=== PATIENT | female | born 1985 | race Native Hawaiian/Other Pacific Islander ===

== ENCOUNTER 2025-01-02 08:08 | Outpatient (CLI) | payer BC, SELFPAY | END 2025-01-02 08:09 | disposition home or self-care (01) | LOC: NFLDREF 01-04 06:38 | PROVIDERS: Visit Provider Physician Assistant Medical | DX: Z13.228 Encounter for screening for other metabolic disorders (principal); Z13.220 Encounter for screening for lipoid disorders; Z13.29 Encounter for screening for other suspected endocrine disorder | CPT/HCPCS: 80053; 80061; 84443 ==

== ENCOUNTER 2025-01-04 10:38 | Outpatient (CLI) | payer BC, SELFPAY | END 2025-01-04 10:39 | disposition home or self-care (01) | LOC: NFLDREF 01-09 09:26 | PROVIDERS: Visit Provider Physician Assistant Medical | DX: D50.9 Iron deficiency anemia, unspecified (principal); N92.0 Excessive and frequent menstruation with regular cycle; R53.83 Other fatigue | CPT/HCPCS: 82306; 82607; 82728 ==

== ENCOUNTER 2025-03-08 14:30 | Outpatient (CLI) | payer BC, SELFPAY ==
--- NOTE | 2025-03-08 14:45 | CRLHL7_ITS ---
For Patients: As a result of the Century Cures Act, medical imaging exams and procedure reports are released immediately into your electronic medical record. You may view this report before your referring provider. If you have questions, please contact your health care provider. INDICATION: heavy menses, anemia COMPARISON: none TECHNIQUE: 2D cormier scale and color Doppler images were acquired of the pelvis using a transabdominal and transvaginal approach. FINDINGS: Sonographic images demonstrate a normal size and smooth outer contour of the uterus. Uterus measures 9.3 cm in length by 4.1 cm in AP diameter by 4.5 cm in transverse dimension. The myometrium has a normal uniform echotexture. 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 No endometrial fluid. No polyp. Ovaries not visualized. There are no suspicious fluid collections within the cul-de-sac. 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 This is considered a normal variant. No endometrial fluid or fibroid. Dictated by Shin Forte MD @ 03/08/2025 4:34:47 PM (Electronically Signed)
== END 2025-03-08 14:31 | disposition home or self-care (01) ==
LOC: US 14:30
PROVIDERS: PCP Physician Assistant Medical; Visit Provider Physician Assistant Medical
DX: N92.4 Excessive bleeding in the premenopausal period (principal); Q51.3 Bicornate uterus; D64.9 Anemia, unspecified
CPT/HCPCS: 76830; 76856

== ENCOUNTER 2025-05-09 19:14 | Outpatient (CLI) | payer BC, SELFPAY ==
--- NOTE | 2025-05-09 19:20 | CRLHL7_ITS ---
For Patients: As a result of the Century Cures Act, medical imaging exams and procedure reports are released immediately into your electronic medical record. You may view this report before your referring provider. If you have questions, please contact your health care provider. INDICATION: BILATERAL SCREENING MAMMOGRAM, ASYMPTOMATIC 40 Y/O FEMALE COMPARISON: BASELINE TECHNIQUE: Digital mammogram in CC and MLO projections including computer-aided detection (CAD) and tomosynthesis. BREAST COMPOSITION: The breasts are almost entirely fatty. FINDINGS: No suspicious findings. ASSESSMENT: BI-RADS 1 Negative RECOMMENDATION: Annual screening mammogram. A lay language report of this examination will be provided to the patient. Dictated by: Shin Forte MD @ 05/11/2025 10:58:41 (Electronically Signed)
== END 2025-05-09 19:15 | disposition home or self-care (01) ==
PROVIDERS: PCP Physician Assistant Medical; Visit Provider Midwife
DX: Z12.31 Encounter for screening mammogram for malignant neoplasm of breast (principal)
CPT/HCPCS: 77063; 77067

== ENCOUNTER 2025-05-30 08:55 | Outpatient (CLI) | payer BC, SELFPAY | END 2025-05-30 08:56 | disposition home or self-care (01) | LOC: NFLDREF 06-01 01:43 | PROVIDERS: PCP Physician Assistant Medical; Referring Provider Physician Assistant Medical; Visit Provider Physician Assistant Medical | DX: E55.9 Vitamin D deficiency, unspecified (principal); R79.0 Abnormal level of blood mineral; D50.9 Iron deficiency anemia, unspecified | CPT/HCPCS: 82306; 82728 ==

== ENCOUNTER 2025-08-09 08:48 | Outpatient (CLI) | payer BC, SELFPAY | END 2025-08-09 08:49 | disposition home or self-care (01) | LOC: NFLDREF 08-11 15:04 | PROVIDERS: PCP Physician Assistant Medical; Referring Provider Physician Assistant Medical; Visit Provider Physician Assistant Medical | DX: E55.9 Vitamin D deficiency, unspecified (principal); D50.9 Iron deficiency anemia, unspecified; R79.0 Abnormal level of blood mineral | CPT/HCPCS: 82306; 82728 ==